=== PATIENT | female | born 1995 | race American Indian/Alaskan Native ===

== ENCOUNTER 2016-11-22 23:56 | Emergency (ER) | payer SELFPAY ==
[2016-11-23 01:06] LABS: Basophils % (Auto) 0.3 % (0.0-1.8); Eosinophils % (Auto) 0.3 % (0.0-4.3); Hematocrit 36.6 % (30.3-42.9); Hemoglobin 11.9 gm/dl (10.1-14.3); Mean Corpuscular HGB Conc 33 % (30-34); Mean Corpuscular Hemoglobin 28 pg (28-32); Mean Corpuscular Volume 85 fl (79-97); Platelet Count 350 K/mm3 (140-440); Red Blood Count 4.31 M/mm3 (3.65-5.03); Red Cell Distribution Width 16.7 % (13.2-15.2); White Blood Count 8.4 K/mm3 (4.5-11.0)
[2016-11-23 01:35] LABS: Bilirubin,Urine NEG (Negative); Blood,Urine NEG (Negative); Ketones,Urine NEG (Negative); Leukocyte Esterase,Urine NEG (Negative); Mucus,Urine FEW /HPF; Nitrite,Urine NEG (Negative); Urobilinogen,Urine < 2.0 mg/dL (<2.0)
[2016-11-23 04:56] VITALS: BP 117/72
== END 2016-11-23 05:51 | disposition left against medical advice (07) ==
LOC: ED 23:56
DX: R10.9 Unspecified abdominal pain (principal); Z53.21 Procedure and treatment not carried out due to patient leaving prior to being seen by health care provider
CPT/HCPCS: 36415; 81001; 84702; 85025; 86850; 86900; 86901

== ENCOUNTER 2017-07-15 17:44 | Emergency (ER) | payer MEDICAID ==
[2017-07-15 17:50] VITALS: BP 160/76
[2017-07-15] MEDS ORDERED: NORCO 5/325 ONE (18:25)
[2017-07-15] MEDS ORDERED: NORCO 5/325 PO ONE (18:30)
[2017-07-15] MEDS ORDERED: AUGMENTIN 875 MG PO ONE (19:51)
[2017-07-15] MEDS ORDERED: NACL 0.9% IR ONE (20:00)
[2017-07-15] MEDS ORDERED: NACL 0.9% 500 ML IR ONE (20:00)
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
[2017-07-15] MEDS: XYLOCAINE 2% INFILTRATI ONE ×2 (20:53→20:54)
[2017-07-15] MEDS ORDERED: BOOSTRIX IM ONE (21:13)
== END 2017-07-15 21:55 | disposition home or self-care (01) ==
LOC: ED 17:44
DX: O9A.212 Injury, poisoning and certain other consequences of external causes complicating pregnancy, second trimester (principal); S41.151A Open bite of right upper arm, initial encounter; Z3A.16 16 weeks gestation of pregnancy; W54.0XXA Bitten by dog, initial encounter; Y93.89 Activity, other specified; Y92.89 Other specified places as the place of occurrence of the external cause; Y99.8 Other external cause status
CPT/HCPCS: 90471; 90715